=== PATIENT | female | born 1965 | race Caucasian/White ===

== ENCOUNTER 2023-05-10 08:40 | Inpatient (IN) | payer BC ==
[~2023-05-10] VITALS: Ht 157.5 cm; Wt 124.5 kg
[2023-05-10] MEDS ORDERED: diltiazem 5mg/ml 5ml inj. IV ONE (08:55)
[2023-05-10] MEDS ORDERED: normal saline 1000ml 1,000 ML IV ONE ×2 (08:55→11:15)
[2023-05-10] MEDS ORDERED: magnesium 2GM in 50ml NS 50 ML IV ONE (08:55)
[2023-05-10 09:10] LABS: BASOPHILS # (AUTO) 0.1 X10'3 (0-0.2); EOSINOPHILS # (AUTO) 0.1 X10'3 (0-0.9); LYMPHOCYTES # (AUTO) 2.4 X10'3 (1.1-4.8); RED BLOOD COUNT 5.35 X10'6 (4.20-5.60)
[2023-05-10 09:12] LABS: BASOPHILS % (AUTO) 1.1 % (0-1); EOSINOPHILS % (AUTO) 0.4 % (0-6); HEMATOCRIT 48.3 % (35.0-45.0); HEMOGLOBIN 16.1 g/dl (12.0-16.0); LYMPHOCYTES % (AUTO) 19.6 % (21-51); MEAN CORPUSCULAR HEMOGLOBIN 30.1 PG (27.0-31.0); MEAN CORPUSCULAR HGB CONC 33.3 g/dL (33.0-36.5); MEAN CORPUSCULAR VOLUME 90.3 FL (78-98); MEAN PLATELET VOLUME 10.6 FL (7.4-10.4); MONOCYTES # (AUTO) 1.3 X10'3 (0-0.9); MONOCYTES % (AUTO) 10.5 % (2-12); NEUTROPHILS # (AUTO) 8.3 X10'3 (1.8-7.7); NEUTROPHILS % (AUTO) 68.4 % (42-75); PLATELET COUNT 232 X10'3 (140-440); RED CELL DISTRIBUTION WIDTH 14.1 % (11.5-14.5); WHITE BLOOD COUNT 12.1 X10'3 (4.5-11.0)
[2023-05-10] MEDS ORDERED: diltiazem-NS 100mg/100ml 100 ML IV ONE (09:20)
[2023-05-10 10:19] LABS: ALBUMIN 3.9 G/DL (3.4-5.0); ANION GAP 20 (8-16); BLOOD UREA NITROGEN 26 MG/DL (7-18); BUN/CREATININE RATIO 17.6 (10.0-20.0); CALCIUM 9.3 MG/DL (8.5-10.1); CHLORIDE 102 MMOL/L (99-107); CREATININE 1.48 MG/DL (0.40-0.90); GLUCOSE 137 MG/DL (70-104); PRO BRAIN NATRIURETIC PEPTIDE 10519 PG/ML (0-125); SODIUM 137 MMOL/L (135-145); THYROID STIMULATING HORMONE 3.78 ulU/ml (0.34-4.50); eCRCL 39 ML/MIN; eGFR 36 ML/MIN
[2023-05-10 10:20] LABS: POTASSIUM 4.3 MMOL/L (3.5-5.1)
[2023-05-10 10:21] LABS: TOTAL CARBON DIOXIDE 14.7 MMOL/L (24-32)
[2023-05-10] MEDS ORDERED: normal saline 1000ML IV soln IVB ONE (10:35)
[2023-05-10] MEDS ORDERED: enoxaparin 100mg/ml syringe SUBCUT ONE ×2 (13:00→13:10)
[2023-05-10] MEDS ORDERED: MONT-40 PO (13:23)
[2023-05-10] MEDS ORDERED: ESCI-8 PO (13:23)
[2023-05-10] MEDS ORDERED: HYDROcodone/acetaminophen 10/325mg tab PO PRN (14:15)
[2023-05-10] MEDS ORDERED: magnesium 2GM in 50ml NS 50 ML IV PRN (14:15)
[2023-05-10] MEDS ORDERED: potassium Cl 40MEQ/1/2NS 520ml 520 ML IV PRN (14:15)
[2023-05-10] MEDS ORDERED: potassium Cl 20 mEq SR tablet PO PRN ×2 (14:15)
[2023-05-10] MEDS ORDERED: magnesium hydroxide 30ml (MOM) UD suspension PO PRN (14:15)
[2023-05-10] MEDS ORDERED: magnesium 4gm in 100ml NS 100 ML IV PRN (14:15)
[2023-05-10] MEDS ORDERED: HYDROcodone/acetaminophen 5mg/325mg tablet PO PRN (14:15)
[2023-05-10] MEDS ORDERED: mag hydrox/Alum hydrox/simeth 30ml oral suspension PO PRN (14:15)
[2023-05-10] MEDS ORDERED: ondansetron/PF 4mg/2ml inj IV PRN (14:15)
[2023-05-10] MEDS ORDERED: acetaminophen 325mg tablet PO PRN ×2 (14:15)
[2023-05-10] MEDS ORDERED: magnesium Cl slow-release 64mg tablet PO PRN (14:15)
[2023-05-10 14:42] LABS: BILIRUBIN,URINE NEGATIVE (Neg); CLARITY,URINE CLEAR (Clear); COLOR,URINE YELLOW (Yellow); GLUCOSE, URINE NEGATIVE (Neg); KETONES,URINE TRACE mg/dl (Neg); LEUKOCYTE ESTERASE ,URINE NEGATIVE (Neg); NITRITES, URINE NEGATIVE (Neg); OCCULT BLOOD,URINE NEGATIVE (Neg); PH,URINE 5.5 (4.8-8.0); PROTEIN,URINE NEGATIVE (Neg); UROBILINOGEN,URINE 0.2 E.U/dL (0.2-1.0)
[2023-05-10 14:51] LABS: UA COLLECTION TYPE NON-SPECIFIED
[2023-05-10 14:57] LABS: HEMOGLOBIN A1C 5.4 % (4.5-6.2)
[2023-05-10 15:41] VITALS: BP 134/90; PULSE 102; RESP 12; TEMP 98.1; O2SAT 97
[2023-05-10 16:41] VITALS: BP 114/55; PULSE 105; RESP 24
[2023-05-10] MEDS ORDERED: furosemide 20 MG/2 ML vial IV SCH (17:35)
[2023-05-10] MEDS ORDERED: metoprolol succinate 25mg (24-HOUR) SR. Tablet PO SCH (17:35)
[2023-05-10 17:41] VITALS: BP 97/67; PULSE 105; RESP 27
[2023-05-10 18:33] VITALS: BP 132/65; PULSE 111; RESP 21; TEMP 97.8; O2SAT 95
[2023-05-10] MEDS: flecainide 50mg tablet PO SCH (19:38)
[2023-05-10] MEDS: apixaban 5mg tablet PO SCH (19:38)
[2023-05-10 20:00] VITALS: RESP 19; O2SAT 95
[2023-05-10] MEDS: K and/or MAG REPLACEMENT MC SCH (20:00)
[2023-05-10 22:00] VITALS: BP 115/75; PULSE 56; RESP 18; TEMP 98.6; O2SAT 96
[2023-05-10 22:04] LABS: ABG BASE EXCESS -2.3 mmol/L (-2.0-2.0); ABG HCO3 19.7 mmol/L (22.0-26.0); ABG OXYGEN SATURATION 94.4 % (94-97); ABG PCO2 (T) 27.4 mmHg (32.0-45.0); ABG PH (T) 7.474 (7.350-7.450); ABG PO2 (T) 73.3 mmHg (75.0-100.0); ALLEN'S TEST Modified; FCOHb 0.6 % (0.0-3.9); FHHb 5.6 % (0.0-5.0); FMetHb 0.2 % (0.0-1.5); FO2Hb 93.6 % (94-97)
[2023-05-10 22:45] LABS: MAGNESIUM 1.6 MG/DL (1.5-2.4); POTASSIUM 3.2 MMOL/L (3.5-5.1)
[2023-05-11] VITALS (13 sets, daily range): BP systolic 98–117; BP diastolic 53–87; PULSE 114–158; RESP 15–24; TEMP 97.2–98.1; O2SAT 93–98
[2023-05-11] MEDS ORDERED: metoprolol tartrate 1mg/ml inj IV ONE (00:10)
[2023-05-11] MEDS ORDERED: diltiazem-NS 100mg/100ml 100 ML IV SCH ×5 (01:30→21:01)
[2023-05-11] MEDS ORDERED: diltiazem-NS 100mg/100ml 100 ML IV ONE (01:40)
[2023-05-11] MEDS: LORazepam 2 mg/ml vial IV PRN (01:46)
[2023-05-11 07:42] LABS: BASOPHILS # (AUTO) 0.1 X10'3 (0-0.2); HEMOGLOBIN 14.1 g/dl (12.0-16.0); LYMPHOCYTES # (AUTO) 1.9 X10'3 (1.1-4.8); MONOCYTES # (AUTO) 1.1 X10'3 (0-0.9); WHITE BLOOD COUNT 9.1 X10'3 (4.5-11.0)
[2023-05-11 07:45] LABS: EOSINOPHILS % (AUTO) 0.3 % (0-6); HEMATOCRIT 41.6 % (35.0-45.0); LYMPHOCYTES % (AUTO) 21.2 % (21-51); MEAN CORPUSCULAR HEMOGLOBIN 30.2 PG (27.0-31.0); MEAN CORPUSCULAR HGB CONC 33.9 g/dL (33.0-36.5); MEAN CORPUSCULAR VOLUME 89.2 FL (78-98); MEAN PLATELET VOLUME 10.8 FL (7.4-10.4); MONOCYTES % (AUTO) 11.5 % (2-12); PLATELET COUNT 211 X10'3 (140-440); RED BLOOD COUNT 4.67 X10'6 (4.20-5.60); RED CELL DISTRIBUTION WIDTH 13.7 % (11.5-14.5)
[2023-05-11 07:57] LABS: ALANINE AMINOTRANSFERASE 58 U/L (12-78); ALBUMIN 3.7 G/DL (3.4-5.0); ALBUMIN/GLOBULIN RATIO 1.2 (1.1-1.5); ALKALINE PHOSPHATASE 77 IU/L (46-116); ANION GAP 13 (8-16); ASPARTATE AMINO TRANSFERASE 47 U/L (10-37); BILIRUBIN,TOTAL 0.8 MG/DL (0.1-1.0); BLOOD UREA NITROGEN 20 MG/DL (7-18); BUN/CREATININE RATIO 17.7 (10.0-20.0); CALCIUM 8.4 MG/DL (8.5-10.1); CHLORIDE 104 MMOL/L (99-107); CREATININE 1.13 MG/DL (0.40-0.90); GLUCOSE 119 MG/DL (70-104); SODIUM 136 MMOL/L (135-145); TOTAL CARBON DIOXIDE 19.3 MMOL/L (24-32); TOTAL PROTEIN 6.8 G/DL (6.4-8.2); eCRCL 43 ML/MIN; eGFR 50 ML/MIN
[2023-05-11] MEDS: K and/or MAG REPLACEMENT MC SCH ×2 (08:00→20:00)
[2023-05-11 08:02] LABS: CHOLESTEROL 141 MG/DL (0-200); HDL CHOLESTEROL 28 MG/DL (35-60); LDL CHOLESTEROL 88 MG/DL (50-100); PHOSPHORUS 4.4 MG/DL (2.3-4.5); TRIGLYCERIDES 122 MG/DL (20-135)
[2023-05-11 08:31] LABS: LARGE PLATELETS FEW; PLATELET ESTIMATE NORMAL
[2023-05-11 08:33] LABS: HYPOGRANULAR PLATELETS FEW
[2023-05-11] MEDS: ESCITALOPRAM 10 mg tablet 10 MG TABLET PO SCH (08:42)
[2023-05-11] MEDS: flecainide 50mg tablet PO SCH (08:42)
[2023-05-11] MEDS: furosemide 20 MG/2 ML vial IV SCH (08:42)
[2023-05-11] MEDS: apixaban 5mg tablet PO SCH (08:42)
[2023-05-11] MEDS ORDERED: metoprolol tartrate 12.5mg (1/2 tablet) PO SCH (08:46)
[2023-05-11] MEDS ORDERED: ondansetron 4mg rapidly disintigrating tab PO PRN (14:05)
[2023-05-11] MEDS ORDERED: esmolol/sodium cl bag 250 ML IV SCH ×2 (17:05→23:50)
[2023-05-11] MEDS ORDERED: enoxaparin 40mg/0.4ml syringe SQ SCH (20:00)
[2023-05-11] MEDS: enoxaparin 30mg/0.3ml syringe SUBCUT SCH (20:47)
[2023-05-11] MEDS ORDERED: metoprolol tartrate 25mg tablet PO SCH (21:00)
[2023-05-12] VITALS (23 sets, daily range): BP systolic 75–145; BP diastolic 49–91; PULSE 82–159; RESP 12–20; TEMP 97.4–98.3; O2SAT 94–100
[2023-05-12] MEDS ORDERED: diltiazem-NS 100mg/100ml 100 ML IV SCH (06:00)
[2023-05-12] MEDS: amiodarone 150mg/dext, iso-os 100 ML IV ONE ×2 (06:28→09:24)
[2023-05-12 07:18] LABS: BASOPHILS # (AUTO) 0.1 X10'3 (0-0.2); EOSINOPHILS # (AUTO) 0.1 X10'3 (0-0.9); HEMATOCRIT 42.2 % (35.0-45.0); HEMOGLOBIN 14.1 g/dl (12.0-16.0); MEAN CORPUSCULAR HGB CONC 33.4 g/dL (33.0-36.5); WHITE BLOOD COUNT 10.7 X10'3 (4.5-11.0)
[2023-05-12 07:22] LABS: EOSINOPHILS % (AUTO) 0.7 % (0-6); LYMPHOCYTES # (AUTO) 2.6 X10'3 (1.1-4.8); LYMPHOCYTES % (AUTO) 24.6 % (21-51); MEAN CORPUSCULAR HEMOGLOBIN 30.1 PG (27.0-31.0); MEAN CORPUSCULAR VOLUME 90.1 FL (78-98); MEAN PLATELET VOLUME 10.9 FL (7.4-10.4); MONOCYTES # (AUTO) 1.5 X10'3 (0-0.9); MONOCYTES % (AUTO) 14.3 % (2-12); NEUTROPHILS # (AUTO) 6.4 X10'3 (1.8-7.7); NEUTROPHILS % (AUTO) 59.4 % (42-75); PLATELET COUNT 210 X10'3 (140-440); RED BLOOD COUNT 4.69 X10'6 (4.20-5.60); RED CELL DISTRIBUTION WIDTH 13.8 % (11.5-14.5)
[2023-05-12 07:39] LABS: ALANINE AMINOTRANSFERASE 211 U/L (12-78); ALBUMIN 3.7 G/DL (3.4-5.0); ALKALINE PHOSPHATASE 84 IU/L (46-116); ANION GAP 15 (8-16); ASPARTATE AMINO TRANSFERASE 208 U/L (10-37); BILIRUBIN,TOTAL 1.1 MG/DL (0.1-1.0); BLOOD UREA NITROGEN 30 MG/DL (7-18); BUN/CREATININE RATIO 25.9 (10.0-20.0); CALCIUM 8.6 MG/DL (8.5-10.1); CHLORIDE 101 MMOL/L (99-107); CREATININE 1.16 MG/DL (0.40-0.90); GLUCOSE 124 MG/DL (70-104); MAGNESIUM 1.9 MG/DL (1.5-2.4); PHOSPHORUS 4.2 MG/DL (2.3-4.5); POTASSIUM 3.6 MMOL/L (3.5-5.1); SODIUM 136 MMOL/L (135-145); TOTAL CARBON DIOXIDE 20.2 MMOL/L (24-32); TOTAL PROTEIN 7.3 G/DL (6.4-8.2); eCRCL 42 ML/MIN; eGFR 48 ML/MIN
[2023-05-12] MEDS: K and/or MAG REPLACEMENT MC SCH ×2 (08:00→20:00)
[2023-05-12] MEDS: furosemide 20 MG/2 ML vial IV SCH (08:13)
[2023-05-12] MEDS: ESCITALOPRAM 10 mg tablet 10 MG TABLET PO SCH (08:13)
[2023-05-12] MEDS: metoprolol tartrate 50mg tablet PO SCH ×2 (08:17→21:52)
[2023-05-12] MEDS: enoxaparin 30mg/0.3ml syringe SUBCUT SCH (08:20)
[2023-05-12] MEDS: amiodarone/D5 360MG/200ML BAG 200 ML IV SCH ×3 (09:45→20:33)
[2023-05-12] MEDS: LORazepam 2 mg/ml vial IV PRN (09:52)
[2023-05-12] MEDS ORDERED: normal saline 1000ml 1,000 ML IV ONE (10:40)
[2023-05-12] MEDS ORDERED: fentaNYL/PF 50MCG/1 ML 2ML syringe IV ONE (15:15)
[2023-05-12] MEDS ORDERED: MIDAZolam 1mg/ml 10ml vial IV ONE (15:15)
[2023-05-12] MEDS ORDERED: enoxaparin 100mg/ml syringe SUBCUT ONE (17:10)
[2023-05-12] MEDS ORDERED: digoxin 250mcg/ml 2ml ampule IV ONE (18:00)
[2023-05-12] MEDS ORDERED: iohexol 350MG/ML 100ml bottle IV ONE (20:46)
[2023-05-13] VITALS (16 sets, daily range): BP systolic 101–124; BP diastolic 60–92; PULSE 76–104; RESP 16–24; TEMP 96.8–98.1; O2SAT 95–98
[2023-05-13] MEDS: amiodarone/D5 360MG/200ML BAG 200 ML IV SCH ×4 (06:00→20:34)
[2023-05-13 07:01] LABS: BASOPHILS # (AUTO) 0.1 X10'3 (0-0.2); BASOPHILS % (AUTO) 0.6 % (0-1); EOSINOPHILS % (AUTO) 0.2 % (0-6); HEMATOCRIT 40.7 % (35.0-45.0); HEMOGLOBIN 13.9 g/dl (12.0-16.0); LYMPHOCYTES # (AUTO) 2.3 X10'3 (1.1-4.8); MEAN CORPUSCULAR HEMOGLOBIN 30.4 PG (27.0-31.0); MEAN CORPUSCULAR HGB CONC 34.1 g/dL (33.0-36.5); MEAN PLATELET VOLUME 10.5 FL (7.4-10.4); MONOCYTES # (AUTO) 1.4 X10'3 (0-0.9); MONOCYTES % (AUTO) 13.1 % (2-12); NEUTROPHILS # (AUTO) 7.1 X10'3 (1.8-7.7); NEUTROPHILS % (AUTO) 65.1 % (42-75); PLATELET COUNT 186 X10'3 (140-440); RED BLOOD COUNT 4.57 X10'6 (4.20-5.60); RED CELL DISTRIBUTION WIDTH 13.9 % (11.5-14.5)
[2023-05-13 07:24] LABS: ANION GAP 13 (8-16); BLOOD UREA NITROGEN 27 MG/DL (7-18); BUN/CREATININE RATIO 24.1 (10.0-20.0); CALCIUM 8.2 MG/DL (8.5-10.1); CHLORIDE 105 MMOL/L (99-107); CREATININE 1.12 MG/DL (0.40-0.90); GLUCOSE 96 MG/DL (70-104); MAGNESIUM 1.8 MG/DL (1.5-2.4); PHOSPHORUS 3.5 MG/DL (2.3-4.5); POTASSIUM 3.8 MMOL/L (3.5-5.1); SODIUM 138 MMOL/L (135-145); TOTAL CARBON DIOXIDE 19.9 MMOL/L (24-32); TOTAL PROTEIN 6.6 G/DL (6.4-8.2); eCRCL 44 ML/MIN; eGFR 50 ML/MIN
[2023-05-13 07:25] LABS: ALANINE AMINOTRANSFERASE 609 U/L (12-78); ALBUMIN 3.4 G/DL (3.4-5.0); ALBUMIN/GLOBULIN RATIO 1.1 (1.1-1.5); ALKALINE PHOSPHATASE 84 IU/L (46-116); ASPARTATE AMINO TRANSFERASE 732 U/L (10-37)
[2023-05-13] MEDS: K and/or MAG REPLACEMENT MC SCH ×2 (08:00→20:00)
[2023-05-13] MEDS: metoprolol tartrate 50mg tablet PO SCH ×2 (09:32→19:18)
[2023-05-13] MEDS: furosemide 20 MG/2 ML vial IV SCH (09:33)
[2023-05-13] MEDS: ESCITALOPRAM 10 mg tablet 10 MG TABLET PO SCH (09:33)
[2023-05-13] MEDS ORDERED: enoxaparin 40mg/0.4ml syringe SUBCUT SCH (20:00)
[2023-05-14] VITALS: BP 102/68; PULSE 84; RESP 18; O2SAT 96
[2023-05-14] MEDS: amiodarone/D5 360MG/200ML BAG 200 ML IV SCH
[2023-05-14 01:30] VITALS: BP 104/58; PULSE 86; RESP 18; TEMP 98.1; O2SAT 96
== END 2023-05-14 02:00 | disposition critical access hospital (66) | DRG 308 ==
LOC: ER 08:40 → ED HOLD 12:44 → PCU 3S 14:45
PROVIDERS: ADMIT Family Medicine; ATTEND Family Medicine
PROC: 5A2204Z Restoration of Cardiac Rhythm, Single (ICD-10-PCS; principal; 2023-05-12)
PROC: B24BZZ4 Ultrasonography of Heart with Aorta, Transesophageal (ICD-10-PCS; 2023-05-12)
PROC: B32T1ZZ Computerized Tomography (CT Scan) of Left Pulmonary Artery using Low Osmolar Contrast (ICD-10-PCS; 2023-05-12)
PROC: B3201ZZ Computerized Tomography (CT Scan) of Thoracic Aorta using Low Osmolar Contrast (ICD-10-PCS; 2023-05-12)
PROC: B32S1ZZ Computerized Tomography (CT Scan) of Right Pulmonary Artery using Low Osmolar Contrast (ICD-10-PCS; 2023-05-12)
DX: I48.91 Unspecified atrial fibrillation (principal); N17.0 Acute kidney failure with tubular necrosis; E87.20 Acidosis, unspecified; I50.20 Unspecified systolic (congestive) heart failure; F43.9 Reaction to severe stress, unspecified; I05.2 Rheumatic mitral stenosis with insufficiency; R74.01 Elevation of levels of liver transaminase levels; Z20.822 Contact with and (suspected) exposure to COVID-19; I95.9 Hypotension, unspecified; D72.829 Elevated white blood cell count, unspecified; E86.0 Dehydration; T46.2X5A Adverse effect of other antidysrhythmic drugs, initial encounter; Y92.238 Other place in hospital as the place of occurrence of the external cause; Z79.899 Other long term (current) drug therapy; Z87.891 Personal history of nicotine dependence
CPT/HCPCS: 36415; 36600; 71045; 71275; 74018; 80048; 80053; 80061; 81003; 82803; 83036; 83605; 83735; 83880; 84100; 84132; 84145; 84443; 84484; 85008; 85018; 85025; 87081; 87811; 93005; 93306; 93312; 94760; 94799; 99285; A4615; A6213; G0378; J0282; J1160; J1650; J1940; J2060; J2250; J2405; J3475; J3480; J3490; J7030; J7040; Q9967

== ENCOUNTER 2023-07-04 09:59 | Outpatient (CLI) | payer BC ==
[~2023-07-04 09:59] MED LIST: ESCI-8 PO
[2023-07-04 10:33] LABS: BASOPHILS # (AUTO) 0.1 X10'3 (0-0.2); BASOPHILS % (AUTO) 0.9 % (0-1); EOSINOPHILS # (AUTO) 0.1 X10'3 (0-0.9); EOSINOPHILS % (AUTO) 1.8 % (0-6); HEMATOCRIT 38.3 % (35.0-45.0); HEMOGLOBIN 12.9 g/dl (12.0-16.0); LYMPHOCYTES % (AUTO) 13.2 % (21-51); MEAN CORPUSCULAR HEMOGLOBIN 28.8 PG (27.0-31.0); MEAN CORPUSCULAR HGB CONC 33.7 g/dL (33.0-36.5); MEAN CORPUSCULAR VOLUME 85.3 FL (78-98); MEAN PLATELET VOLUME 8.8 FL (7.4-10.4); MONOCYTES # (AUTO) 0.8 X10'3 (0-0.9); MONOCYTES % (AUTO) 10.2 % (2-12); NEUTROPHILS # (AUTO) 5.8 X10'3 (1.8-7.7); NEUTROPHILS % (AUTO) 73.9 % (42-75); PLATELET COUNT 283 X10'3 (140-440); RED BLOOD COUNT 4.49 X10'6 (4.20-5.60); RED CELL DISTRIBUTION WIDTH 14.6 % (11.5-14.5); WHITE BLOOD COUNT 7.9 X10'3 (4.5-11.0)
[2023-07-04 10:43] LABS: INR 2.1 INR
[2023-07-04 10:52] LABS: PROTHROMBIN TIME 21.5 SECONDS (9.0-12.0)
== END 2023-07-04 23:59 | disposition home or self-care (01) ==
LOC: LAB 09:59
PROVIDERS: ATTEND Internal Medicine Interventional Cardiology
DX: Z95.2 Presence of prosthetic heart valve (principal)
CPT/HCPCS: 36415; 85025; 85610

== ENCOUNTER 2023-08-18 16:04 | Outpatient (CLI) | payer BC ==
[2023-08-18 16:48] LABS: INR 2.8 INR; PROTHROMBIN TIME 27.6 SECONDS (9.0-12.0)
== END 2023-08-18 23:59 | disposition home or self-care (01) ==
LOC: LAB 16:04
PROVIDERS: ATTEND Family Medicine
DX: I82.409 Acute embolism and thrombosis of unspecified deep veins of unspecified lower extremity (principal)
CPT/HCPCS: 36415; 85610

== ENCOUNTER 2023-08-29 09:52 | Outpatient (CLI) | payer BC ==
[2023-08-29 10:35] LABS: ALBUMIN 3.8 G/DL (3.4-5.0); ANION GAP 5 (8-16); BLOOD UREA NITROGEN 22 MG/DL (7-18); BUN/CREATININE RATIO 23.7 (10.0-20.0); CALCIUM 8.9 MG/DL (8.5-10.1); CHLORIDE 102 MMOL/L (99-107); CREATININE 0.93 MG/DL (0.40-0.90); GLUCOSE 97 MG/DL (70-104); POTASSIUM 4.3 MMOL/L (3.5-5.1); SODIUM 135 MMOL/L (135-145); TOTAL CARBON DIOXIDE 28.3 MMOL/L (24-32); eGFR 62 ML/MIN
== END 2023-08-29 23:59 | disposition home or self-care (01) ==
LOC: LAB 09:52
PROVIDERS: ATTEND Family Medicine
DX: S80.01XA Contusion of right knee, initial encounter (principal); I50.22 Chronic systolic (congestive) heart failure; I48.91 Unspecified atrial fibrillation; X58.XXXA Exposure to other specified factors, initial encounter; Y93.89 Activity, other specified; Y92.89 Other specified places as the place of occurrence of the external cause; Y99.8 Other external cause status
CPT/HCPCS: 36415; 73564; 80048

== ENCOUNTER 2023-09-06 07:22 | Outpatient (CLI) | payer BC ==
[2023-09-06 07:55] LABS: INR 3.4 INR; PROTHROMBIN TIME 32.4 SECONDS (9.0-12.0)
== END 2023-09-06 23:59 | disposition home or self-care (01) ==
LOC: RAD 07:22
PROVIDERS: ATTEND Family Medicine
DX: I82.409 Acute embolism and thrombosis of unspecified deep veins of unspecified lower extremity (principal)
CPT/HCPCS: 36415; 85610

== ENCOUNTER 2023-10-21 14:15 | Emergency (ER) | payer BC ==
[~2023-10-21] VITALS: Ht 167.6 cm; Wt 109.1 kg
[2023-10-21 14:19] VITALS: TEMP 98
[2023-10-21] MEDS: normal saline 500ml IV soln 500 ML IV SCH (15:05)
[2023-10-21 15:06] LABS: BASOPHILS # (AUTO) 0.1 X10'3 (0-0.2); BASOPHILS % (AUTO) 1.2 % (0-1); EOSINOPHILS # (AUTO) 0.1 X10'3 (0-0.9); EOSINOPHILS % (AUTO) 1.1 % (0-6); HEMATOCRIT 40.5 % (35.0-45.0); HEMOGLOBIN 13.4 g/dl (12.0-16.0); LYMPHOCYTES # (AUTO) 1.6 X10'3 (1.1-4.8); LYMPHOCYTES % (AUTO) 19.9 % (21-51); MEAN CORPUSCULAR HEMOGLOBIN 28.6 PG (27.0-31.0); MEAN CORPUSCULAR HGB CONC 33.1 g/dL (33.0-36.5); MEAN CORPUSCULAR VOLUME 86.4 FL (78-98); MONOCYTES # (AUTO) 0.9 X10'3 (0-0.9); MONOCYTES % (AUTO) 11.3 % (2-12); NEUTROPHILS # (AUTO) 5.3 X10'3 (1.8-7.7); NEUTROPHILS % (AUTO) 66.5 % (42-75); PLATELET COUNT 237 X10'3 (140-440); RED CELL DISTRIBUTION WIDTH 14.8 % (11.5-14.5)
[2023-10-21 15:25] LABS: ALBUMIN 4.1 G/DL (3.4-5.0); ANION GAP 6 (8-16); BLOOD UREA NITROGEN 20 MG/DL (7-18); BUN/CREATININE RATIO 18.7 (10.0-20.0); CALCIUM 8.7 MG/DL (8.5-10.1); CHLORIDE 101 MMOL/L (99-107); CREATININE 1.07 MG/DL (0.40-0.90); GLUCOSE 98 MG/DL (70-104); POTASSIUM 3.8 MMOL/L (3.5-5.1); PRO BRAIN NATRIURETIC PEPTIDE 429 PG/ML (0-125); SODIUM 138 MMOL/L (135-145); eCRCL 54 ML/MIN; eGFR 53 ML/MIN
[2023-10-21 17:39] VITALS: BP 113/66; PULSE 60; RESP 15; O2SAT 99
== END 2023-10-21 17:42 | disposition home or self-care (01) ==
LOC: ER 14:16
DX: R42 Dizziness and giddiness (principal); E86.0 Dehydration; Z79.899 Other long term (current) drug therapy; Z98.890 Other specified postprocedural states
CPT/HCPCS: 36415; 71045; 80048; 83880; 84484; 85025; 93005; 96360; 96361; 99285; J7030; J7040

== ENCOUNTER 2023-11-29 09:10 | Outpatient (CLI) | payer BC ==
[2023-11-29] MEDS ORDERED: iohexol 300mg/ml 100ml inj. ONE (09:24)
== END 2023-11-29 23:59 | disposition home or self-care (01) ==
LOC: RAD 09:10
PROVIDERS: ATTEND Nurse Practitioner Family
DX: R91.1 Solitary pulmonary nodule (principal); I51.7 Cardiomegaly; K44.9 Diaphragmatic hernia without obstruction or gangrene
CPT/HCPCS: 71260; Q9967

== ENCOUNTER 2023-12-13 07:21 | Outpatient (CLI) | payer BC | END 2023-12-13 23:59 | disposition home or self-care (01) | LOC: RAD 07:21 | PROVIDERS: ATTEND Family Medicine | DX: M25.532 Pain in left wrist (principal) | CPT/HCPCS: 73110 ==

== ENCOUNTER 2024-04-10 14:24 | Emergency (ER) | payer BC ==
[~2024-04-10] VITALS: Ht 167.6 cm; Wt 101.3 kg
[2024-04-10 14:54] VITALS: TEMP 97.2
[2024-04-10 15:34] LABS: BASOPHILS % (AUTO) 0.3 % (0-1); EOSINOPHILS # (AUTO) 0.1 X10'3 (0-0.9); EOSINOPHILS % (AUTO) 1.6 % (0-6); HEMATOCRIT 42.4 % (35.0-45.0); HEMOGLOBIN 14.3 g/dl (12.0-16.0); LYMPHOCYTES # (AUTO) 1.6 X10'3 (1.1-4.8); LYMPHOCYTES % (AUTO) 24.4 % (21-51); MEAN CORPUSCULAR HEMOGLOBIN 30.1 PG (27.0-31.0); MEAN CORPUSCULAR HGB CONC 33.7 g/dL (33.0-36.5); MEAN CORPUSCULAR VOLUME 89.4 FL (78-98); MEAN PLATELET VOLUME 10.6 FL (7.4-10.4); MONOCYTES # (AUTO) 0.9 X10'3 (0-0.9); MONOCYTES % (AUTO) 13.4 % (2-12); NEUTROPHILS # (AUTO) 3.8 X10'3 (1.8-7.7); NEUTROPHILS % (AUTO) 60.3 % (42-75); PLATELET COUNT 183 X10'3 (140-440); RED BLOOD COUNT 4.74 X10'6 (4.20-5.60); WHITE BLOOD COUNT 6.3 X10'3 (4.5-11.0)
[2024-04-10 16:03] LABS: ALANINE AMINOTRANSFERASE 25 U/L (12-78); ALBUMIN/GLOBULIN RATIO 1.2 (1.1-1.5); ALKALINE PHOSPHATASE 118 IU/L (46-116); ANION GAP 10 (8-16); ASPARTATE AMINO TRANSFERASE 20 U/L (10-37); BILIRUBIN,TOTAL 0.5 MG/DL (0.1-1.0); BLOOD UREA NITROGEN 17 MG/DL (7-18); BUN/CREATININE RATIO 20.2 (10.0-20.0); CALCIUM 8.8 MG/DL (8.5-10.1); CHLORIDE 102 MMOL/L (99-107); CREATININE 0.84 MG/DL (0.40-0.90); GLUCOSE 90 MG/DL (70-104); SODIUM 138 MMOL/L (135-145); TOTAL CARBON DIOXIDE 26.4 MMOL/L (24-32); TOTAL PROTEIN 7.3 G/DL (6.4-8.2); eCRCL 68 ML/MIN; eGFR 70 ML/MIN
[2024-04-10 16:05] LABS: PRO BRAIN NATRIURETIC PEPTIDE 415 PG/ML (0-125)
[2024-04-10 16:11] LABS: POTASSIUM 4.3 MMOL/L (3.5-5.1)
[2024-04-10 16:57] LABS: PLATELET ESTIMATE NORMAL
[2024-04-10 16:58] LABS: LARGE PLATELETS FEW
[2024-04-10 18:24] VITALS: BP 142/85; PULSE 72; RESP 16; O2SAT 99
== END 2024-04-10 18:26 | disposition home or self-care (01) ==
LOC: ER 14:25
DX: T82.118A Breakdown (mechanical) of other cardiac electronic device, initial encounter (principal); Y82.8 Other medical devices associated with adverse incidents; Z95.0 Presence of cardiac pacemaker
CPT/HCPCS: 36415; 71045; 80053; 83880; 84484; 85008; 85025; 93005; 99285

== ENCOUNTER 2024-05-07 15:50 | Outpatient (CLI) | payer BC | END 2024-05-07 23:59 | disposition home or self-care (01) | LOC: CARD DIAG 15:50 | PROVIDERS: ATTEND Family Medicine | DX: I08.2 Rheumatic disorders of both aortic and tricuspid valves (principal); I50.22 Chronic systolic (congestive) heart failure | CPT/HCPCS: 93306 ==

== ENCOUNTER 2025-01-21 07:38 | Outpatient (CLI) | payer BC ==
[2025-01-21 08:24] LABS: MEAN PLATELET VOLUME 9.8 FL (7.4-10.4); RED CELL DISTRIBUTION WIDTH 13.8 % (11.5-14.5)
[2025-01-21 08:41] LABS: CREATININE 0.79 MG/DL (0.40-0.90); PRO BRAIN NATRIURETIC PEPTIDE 548 PG/ML (0-125); TOTAL CARBON DIOXIDE 30.5 MMOL/L (24-32); eGFR 74 ML/MIN
[2025-01-21] MEDS ORDERED: POTA20PA40 PO (12:11)
== END 2025-01-21 23:59 | disposition home or self-care (01) ==
LOC: LAB 07:38
PROVIDERS: ATTEND Nurse Practitioner Family
DX: Z00.01 Encounter for general adult medical examination with abnormal findings (principal); I48.0 Paroxysmal atrial fibrillation; R79.89 Other specified abnormal findings of blood chemistry; R73.03 Prediabetes; Z95.810 Presence of automatic (implantable) cardiac defibrillator; I42.8 Other cardiomyopathies
CPT/HCPCS: 36415; 80053; 82977; 83036; 83690; 83880; 84439; 84443; 85025

== ENCOUNTER 2025-01-21 09:45 | Emergency (ER) | payer BC ==
[~2025-01-21] VITALS: Ht 167.6 cm; Wt 88.8 kg
[2025-01-21 09:52] VITALS: TEMP 97
[2025-01-21 10:30] LABS: MEAN PLATELET VOLUME 9.8 FL (7.4-10.4); RED CELL DISTRIBUTION WIDTH 13.9 % (11.5-14.5)
[2025-01-21 10:44] LABS: CREATININE 0.73 MG/DL (0.40-0.90); TOTAL CARBON DIOXIDE 32.9 MMOL/L (24-32); eCRCL 78 ML/MIN; eGFR 82 ML/MIN
--- NOTE | 2025-01-21 10:58 | Physician Documentation ---
History of Present Illness ~ General Chief Complaint: Abnormal Lab(s) Stated Complaint: DR PUENTES FOR CRITICAL LABS Time Seen by MD: 09:57 Primary Medical Doctor: NONE Mode of Arrival: POV, Ambulatory Exam Limitations: no limitations History of Present Illness Initial Comments Chief Complaint: Abnormal lab Caveat: None Independent Historians: None History of Present Illness: Patient is a 59-year-old woman with a history of mechanical mitral valve. Patient is on Bumex and Coumadin. Patient had lab work done yesterday and had a potassium of 2.5. She was referred here for evaluation. Patient denies any symptoms of acute illness. She isn't having any fatigue, shortness breath or chest pain. Patient states that she has not been able to get her INR over 2.5. Review of systems: All systems were reviewed and are negative except for what is indicated in the history of present illness. Past Medical History: Congestive heart failure Past Surgical History: Mechanical mitral valve Social History: No tobacco use, no alcohol use, no drug use Medications: Reviewed as documented Nursing Notes Allergies: Reviewed as documented in Nursing Notes Psych: normal affect, good eye contact, no apparent hallucination, normal speech Medication Reconciliation Allergies: Coded Allergies: No Known Allergies (Unverified , 01/21/25) Scheduled Escitalopram Oxalate (Escitalopram Oxalate), 1 TAB PO DAILY, (Reported) Potassium Chloride (Klor-Con), 1 PKT PO BID Past Medical History Past Medical History: *CARDIOVASCULAR*, Mitral Valve Stenosis Past Surgical History: noncontributory, other Drug Use: none Lives In: Home Review of Systems All Other Systems at this time: Reviewed and Negative ROS Patient denies any other acute symptoms other than above. All other systems are negative Physical Exam Physical Exam Vital Signs: RN Vital Signs have been reviewed: Yes, Temperature: 97.0, Source: Temporal, Heart Rate: 57, Respiratory Rate: 16, BP: 115/40, Pulse Oximetry: 98, Weight: 88.750 Pulse Oximetry Reflects: adequate oxygenation Physical Exam General Appearance: No distress HEENT: Normal OP, moist oral mucosa, PERRL, EOMI Neck: supple, normal ROM, trachea midline Pulmonary: No respiratory distress, CTA, BS equal Cardiac: RRR, no murmur, rub or gallop, GI: nondistended, soft, nontender, normal bowel sounds, no guarding, no rebound Extremities: normal ROM, no swelling, non-tender Skin: intact, dry, warm, no rashes Neuro: AAOx3, speech is clear, no focal motor weakness Psych: normal affect, good eye contact, no apparent hallucination, normal speech Progress Results/Orders Results/Orders Completed Orders - DARA BARNETT MD Cbc/Diff (01/21/25 10:07) MG (01/21/25 10:07) CMP (01/21/25 10:07) Pt Inr (01/21/25 10:59) Potassium Cl Sr Tablet (K-Dur Tablet) (01/21/25 12:20) Vital Signs 01/21/25 01/21/25 01/21/25 01/21/25 09:52 10:20 11:07 12:34 Temp 97.0 Pulse 57 58 62 Resp 18 16 12 12 B/P (MAP) 115/40 110/60 (77) 113/59 Pulse Ox 98 97 97 O2 Flow Rate 0 Laboratory Tests Test 01/21/25 10:20 White Blood Count 11.1 H Red Blood Count 4.61 Hemoglobin 13.9 Hematocrit 40.8 Mean Corpuscular Volume 88.5 Mean Corpuscular Hemoglobin 30.1 Mean Corpuscular Hemoglobin Concent 34.0 Red Cell Distribution Width 13.9 Platelet Count 231 Mean Platelet Volume 9.8 Neutrophils (%) (Auto) 78.6 H Lymphocytes (%) (Auto) 10.9 L Monocytes (%) (Auto) 8.7 Eosinophils (%) (Auto) 0.8 Basophils (%) (Auto) 1.0 Neutrophils # (Auto) 8.7 H Lymphocytes # (Auto) 1.2 Monocytes # (Auto) 1.0 H Eosinophils # (Auto) 0.1 Basophils # (Auto) 0.1 CBC Comment Prothrombin Time 17.2 H INR International Normalized Ratio 1.8 Coagulation Comments Sodium Level 140 Potassium Level 3.0 *L Chloride Level 102 Carbon Dioxide Level 32.9 H Anion Gap 5 L Blood Urea Nitrogen 20 H Creatinine 0.73 Estimated GFR/1.73 m2 82 BUN/Creatinine Ratio 27.4 H Glucose Level 97 Calcium Level 8.8 Magnesium Level 2.0 Total Bilirubin 0.6 Aspartate Amino Transf (AST/SGOT) 18 Alanine Aminotransferase (ALT/SGPT) 22 Alkaline Phosphatase 116 Total Protein 7.5 Albumin 3.9 Globulin 3.6 Albumin/Globulin Ratio 1.1 Chemistry Comments Medical Decision Making Additional info obtained from: old records Findings Differential diagnosis includes but is not limited to: Hypomagnesemia, hypokalemia, acute kidney injury, medication side effect Laboratory data independent interpretation: CBC: Unremarkable, WBC 11.1 CMP: Hypokalemia, potassium three, magnesium normal at two. Otherwise unremarkable PT/INR: 17.2/1.8 Emergency department course/medical decision-making: Patient is likely hypokalemic secondary to for Bumex. Patient isn't on potassium supplements. Patient is given potassium 40 mEq here orally. She will be placed on potassium 20 mEq b.i.d.. Patient's INR is subtherapeutic. She is going to be instructed to double her dose today and then try double the dose every other day. Patient has lab work tomorrow for repeat INR. Patient is stable for discharge. Differential Diagnosis See above Departure Disposition: HOME / SELF CARE / HOMELESS Impression: Primary Impression: Hypokalemia Condition: Stable Discharge Instructions: Hypokalemia Referrals: NO PRIMARY CARE PROVIDER (PCP) Prescriptions Potassium Chloride (Klor-Con) 20 Meq Packet 1 PKT PO BID for 30 Days, #30 PKT 0 Refills Prov: DARA BARNETT MD 01/21/25 Education Educated: Patient Educated regarding: diagnosis, treatment Signature Scribe Signature: No scribe Attestation: No scribe DARA BARNETT MD Jan 21, 2025 10:58
[2025-01-21 11:27] LABS: INR 1.8 INR
[2025-01-21] MEDS ORDERED: POTA20PA40 PO (12:11)
[2025-01-21] MEDS: potassium Cl 20 mEq SR tablet PO ONE (12:30)
[2025-01-21 12:34] VITALS: BP 113/59; PULSE 62; RESP 12; O2SAT 97
== END 2025-01-21 12:36 | disposition home or self-care (01) ==
LOC: ER 09:46
DX: E87.6 Hypokalemia (principal); I50.9 Heart failure, unspecified
CPT/HCPCS: 36415; 80053; 83735; 85025; 85610; 99284

== ENCOUNTER 2025-02-13 13:07 | Emergency (ER) | payer BC ==
[~2025-02-13] VITALS: Ht 167.6 cm; Wt 90.4 kg
[~2025-02-13 13:07] MED LIST changes: +POTA20PA40 PO
--- NOTE | 2025-02-13 13:14 | ELECTROCARDIOGRAPH REPORT ---
[facility] Test Date: 2025-02-13 Test Time: 13:12:57 Pat Name: SOMMER SAUCEDA Department: EMERGENCY ROOM Patient ID: [facility]-[id number] Room: Gender: F Patient Support Representative: : 1965 Requested By: LOTTIE CARTAGENA Order Number: [id number] Reading MD: Dr. Perry Serna Measurements Intervals [place] Rate: 69 P: 0 [place]: 231 QRS: 121 QRSD: 140 T: 43 QT: 440 QTc: 472 Interpretive Statements A-V dual-paced complexes w/ some inhibition No further analysis attempted due to paced rhythm Electronically Signed On 02-14-2025 18:48:[address] Perry Serna Please click the below link to view image of tracing.
[2025-02-13 13:41] LABS: MEAN PLATELET VOLUME 10.5 FL (7.4-10.4); RED CELL DISTRIBUTION WIDTH 14.0 % (11.5-14.5)
[2025-02-13 13:58] LABS: CREATININE 1.04 MG/DL (0.40-0.90); PRO BRAIN NATRIURETIC PEPTIDE 470 PG/ML (0-125); TOTAL CARBON DIOXIDE 27.5 MMOL/L (24-32); eCRCL 55 ML/MIN; eGFR 54 ML/MIN
--- NOTE | 2025-02-13 14:05 | RADIOLOGY REPORT ---
CHEST RADIOGRAPH Indication: CP Technique: Single frontal view of the chest was obtained Comparison: DI CHEST,SINGLE VIEW on DOS: 04/10/24, CT CT CHEST on DOS: 11/29/23, DI CHEST,SINGLE VIEW on DOS: 10/21/23, CT CTA CHEST PE on DOS: 05/12/23, DI CHEST,SINGLE VIEW on DOS: 05/10/23 FINDINGS: Lines and Tubes: Left sided pacemaker Lungs: No focal consolidation. Pleura: No effusion. No pneumothorax. Cardiomediastinal contours: Unremarkable Bones: No acute osseous abnormality. IMPRESSION: No acute cardiopulmonary disease.
--- NOTE | 2025-02-13 15:20 | Physician Documentation ---
History of Present Illness ~ Chief Complaint: Palpitations Stated Complaint: AFIB Time Seen by MD: 14:18 Primary Medical Doctor: NONE Mode of Arrival: POV HPI This is a very pleasant 59-year-old female with a known history of atrial fibrillation, status post pacemaker, status post valve repairs, followed by Dr. Katy peralta, on anticoagulation, presents for evaluation of palpitations. Evidently her insurance had denied Mounjaro two months ago, since then she has been gaining weight and experiencing intermittent palpitations. 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 He had become concerned and sent the patient in the emergency department. The patient states that typically her palpitations are notable for one strong beat followed by a triple beat flutter that comes in the rapid succession. At no point in time she has a knee chest pain or shortness a breath. Denies any fever, chills, nausea, vomiting, diarrhea, abdominal pain. He is compliant with her medications. Medication Reconciliation Allergies: Coded Allergies: No Known Allergies (Unverified , 02/13/25) Scheduled Escitalopram Oxalate (Escitalopram Oxalate), 1 TAB PO DAILY, (Reported) Potassium Chloride (Klor-Con), 1 PKT PO BID Past Medical History Past Medical History: *CARDIOVASCULAR*, Mitral Valve Stenosis Past Surgical History: noncontributory, other Drug Use: none Lives In: Home Review of Systems ROS 10 point review of systems was performed and unless noted above in HPI is negative for acute process/complaint. Physical Exam Vital Signs: Temperature: 98.4, Source: Oral, Heart Rate: 64, Respiratory Rate: 16, BP: 94/43, Pulse Oximetry: 96, Weight: 90.400 Oxygen Flow Rate: 0 Physical Exam GENERAL: Awake, alert, oriented, GCS 15, no apparent distress, non-toxic appearing, answers questions, follows commands appropriately. Examined in bed 5. HEENT: Atraumatic, normocephalic, pupils equal, extraocular muscles intact, sclerae anicteric, mucus membranes moist, oropharynx is clear, no stridor. NECK: supple, full active range of motion, trachea midline, no thyromegaly, no lymphadenopathy, no JVD. CARDIOVASCULAR: regular rate/rhythm, no murmurs/gallops/rubs, Pulses are 2+ in all extremities and symmetric. Capillary refill less than 2 seconds. PULMONARY: Nonlabored, good air movement ,no respiratory distress, speaking in full sentences, clear to auscultation bilaterally, no wheezing, no ronchi, no rales, no accessory muscle use. GASTROINTESTINAL: Soft, non-tender, non-distended, normal active bowel sounds, no organomegaly, no pulsatile masses, no CVA tenderness. NEUROLOGIC: Lucid with normal mental status. Normal facial symmetry. Moves all extremities symmetrically and with purpose. No truncal ataxia. Speech is fluid without evidence of dysarthria or aphasia, no focal deficits appreciated. MUSCULOSKELETAL: There is full range of motion of all extremities. There is no joint pain or joint swelling or joint erythema. There is no muscle pain or tenderness or swelling. EXTREMITIES: warm, well-perfused, no cyanosis, no clubbing, no edema, no acute deformities. Skin: warm, dry, no rashes or lesions, no jaundice, no petechiae orpurpura. No ecchymosis. PSYCHIATRIC: Normal affect, normal insight, normal concentration. Focused exam: [Old well-healed sternotomy scar noted.] Progress Results/Orders Results/Orders Orders - FELIX CARTAGENA DO Chest,Single View (02/13/25:) Monitor (02/13/25:29) Saline Lock (02/13/25:29) Oxygen (02/13/25:29) Saline Lock (02/13/25 15:19) Completed Orders - FELIX CARTAGENA DO Electrocardiogram (02/13/25 ) Chest,Single View (02/13/25:29) Cbc/Diff (02/13/25 13:29) BMP (02/13/25 13:29) PBNP (02/13/25:29) Hs Troponin I W Calculations (02/13/25 13:29) Hs Troponin I W Calculations (02/13/25 15:29) D-Dimer (02/13/25 15:19) Pt Inr (02/13/25 15:19) PTT (02/13/25 15:19) Normal Saline 1000ml (0.9% Sodium Chlori (02/13/25 15:20) TSH (02/13/25 15:23) Free T4 (02/13/25 15:23) Medications Received in ER Medications (Trade) Dose Ordered Sig/Traci Route PRN Reason Start Time Stop Time Status Last Admin Dose Admin (0.9% sodium chloride (NS) 1000ml IV soln) 1,000 ml ONCE ONCE IVB 02/13/25 15:20 02/13/25 15:22 DC 02/13/25 15:51 1,000 ML Vital Signs 02/13/25 02/13/25 02/13/25 02/13/25 13:23 13:35 13:45 14:00 Temp 98.4 Pulse 64 62 59 Resp 16 16 11 18 B/P (MAP) 94/43 105/47 (66) Pulse Ox 96 94 O2 Flow Rate 0 02/13/25 02/13/25 02/13/25 02/13/25 14:15 14:30 15:00 15:15 Pulse 58 52 52 58 Resp 19 18 16 15 B/P (MAP) 102/49 (66) 102/51 (68) 102/52 (69) 108/48 (68) Pulse Ox 94 93 97 97 O2 Flow Rate 0 0 0 0 02/13/25 02/13/25 16:00 17:00 Pulse 49 56 Resp 20 18 B/P (MAP) 98/50 (66) 119/63 (81) Pulse Ox 97 98 O2 Flow Rate 0 0 Laboratory Tests Test 02/13/25 13:19 02/13/25 15:27 02/13/25 15:35 White Blood Count 8.2 Red Blood Count 4.77 Hemoglobin 14.3 Hematocrit 42.7 Mean Corpuscular Volume 89.4 Mean Corpuscular Hemoglobin 30.0 Mean Corpuscular Hemoglobin Concent 33.6 Red Cell Distribution Width 14.0 Platelet Count 231 Mean Platelet Volume 10.5 H Neutrophils (%) (Auto) 66.5 Lymphocytes (%) (Auto) 20.3 L Monocytes (%) (Auto) 10.0 Eosinophils (%) (Auto) 1.9 Basophils (%) (Auto) 1.3 H Neutrophils # (Auto) 5.4 Lymphocytes # (Auto) 1.7 Monocytes # (Auto) 0.8 Eosinophils # (Auto) 0.2 Basophils # (Auto) 0.1 CBC Comment Sodium Level 140 Potassium Level 4.1 Chloride Level 103 Carbon Dioxide Level 27.5 Anion Gap 10 Blood Urea Nitrogen 20 H Creatinine 1.04 H Estimated GFR/1.73 m2 54 BUN/Creatinine Ratio 19.2 Glucose Level 107 H Calcium Level 8.2 L Troponin I High Sensitivity 4 4 Pro-B-Type Natriuretic Peptide 470 H Albumin 4.1 Chemistry Comments Prothrombin Time 35.9 H INR International Normalized Ratio 4.0 *H Activated Partial Thromboplast Time 48 H D-Dimer 0.21 D-Dimer Comment Coagulation Comments Troponin I High Sens Percent Delta 0 Troponin I Hi Sens Absolute Change 0 Thyroid Stimulating Hormone (TSH) 0.90 Free Thyroxine 0.90 EKG/XRAY/CT/US/VASC/MRI EKG : Additional Comment EKG was obtained and interpreted by myself. It shows atrial a ventricularly paced rhythm with a some prolonged NE, wide QRS, no QT prolongation, right axis, no STEMI. No ectopy. Medical Decision Making Additional information obtaine: old records, PCP Findings Facility Status: ED Holds, RME process The plan was discussed with the patient, who demonstrates clear understanding of the plan and is in agreement with the plan unless otherwise noted in the chart. All questions have been answered, all concerns were addressed unless otherwise documented. I was available throughout their ED stay for frequent reassessment and questions. Differential Diagnoses (considered and possible or likely): [PAC, PVC, atrial fibrillation, with a without rapid ventricular response, atrial flutter, less likely ventricular arrhythmia, less likely ACS, less likely CHF, less likely pneumonia] ??Differential Diagnoses (considered and unlikely, not requiring evaluation currently): [PE unlikely given the patient is already anticoagulated with the warfarin with a therapeutic INR] MDM Data Please see [facility] for the following: Independent Historians and external Records Review. Historian: [Patient] Independent Historians: ?[Primary care, record review] Medication Management: [Reviewed medication list] Social History and determinants: [Reviewed] Please see the body of the note for the following: Any independent interpretations of ECG, imaging studies. All vitals signs/haemodynamics, ordered tests were independently reviewed and interpreted by myself. Nursing triage complaint and vitals reviewed, additional nursing notes were reviewed as available and I agree unless otherwise noted or documented in contradiction in the chart Vital Signs: Independently reviewed Labs: Independently interpreted Imaging: Independently interpreted Old Medical Records: Independently reviewed, see [facility] for relevant summary and information Pulse Oximetry: [96%] interpreted as [normal on room air] by me [Internal Recruiter: [Paced rhythm with the occasional wiyot PVC.] reviewed and interpreted by me] Additionally notably showing: [Hemodynamics reviewed. The patient isn't febrile, not tachycardic, soft blood pressure, no evidence of hypoxia. Laboratory studies showed no leukocytosis, no anemia, no neutrophilic predominance. Metabolic panel notable for slight dehydration. Troponin is negative. BNP is borderline for CHF exacerbation but does not meet criteria. Chest x-ray was obtained showing no acute cardiopulmonary disease.] Tests considered but not ordered include: [Advanced imaging does not appear to be necessary at this time] Social Determinants of Health Impact: Patient was evaluated in [facility] [place] to healthcare due to below par ratio of patient to medical providers. [] Comorbid Conditions Impacting Present Evaluation and Care/Treatment: [Anticoagulated, status post artificial valve, AFib, paced] Management Discussions with other Healthcare Providers: [[employer] policy services representative regarding interrogating the pacemaker.] Treatment and Disposition Medication Management (Given or considered): [Fluid resuscitation was provided for treatment of clinically and/or laboratory apparent dehydration.]. See EMR f or details Consideration for Hospitalization/Escalation/Deescalation of Care: Admission for observation has been considered, [however the patient is able to tolerate p.o., their symptoms are controlled, they are able to rely on oral medications, and their chief complaint/diagnosis can be managed on outpatient basis.] ?ED Course:?[Date: Feb 13, 2025 Time: 15:21 pacemaker rep has been contacted. They say that they "will be there at some point. Date: Feb 13, 2025 Time: 17:30 records from the clinic were sent over. They show problem list notable for nonischemic cardiomyopathy with a CHF, history of mitral valve stenosis, paroxysmal AFib, depression with the anxiety, pulmonary nodule, prediabetes, prosthetic heart valve, according to her pacemaker testing and interrogation there has been no recent events and pacemaker is working as intended. ] ?Shared decision making:?[Patient is hemodynamically stable for discharge home with follow with their primary care provider. [ ] Specific and cautious return precautions provided and discussed with full understanding. Any incidental findings were also discussed and follow up recommendations given. [] All questions answered. Patient/family were able to verbalize back return preca utions. Patient/family agree to plan. Copies of imaging and laboratory studies were provided.] Code status:?FULL Please see the full Electronic Medical Record for full details of nursing documentation, medications list, other records of complete past medical history and conditions, vital signs, laboratory studies, and any radiologic study interpretations by radiologists. Portions of this note were completed using [employer] dictation software and as a result there may exist minor errors in spelling. I have reviewed elements of past family and social history and agree as included in note. Differential Dx:Considerations: Include: atrial dysrhythmia, atrial fibrillation, atrial flutter, MAT, PACs, PSVT, sinus tachycardia, 2nd degree AVB-type 1, 2nd degree AVB-type 2, 3rd degree AV block, PVCs; Unlikely: ventricular fibrillation, ventricular tachycardia Differential Dx:Considerations: Include electrolyte disorder, Include heart failure, Include hyperthyroidism, Include hyperventilation, Include pulmonary embolus Departure Disposition: 01 HOME / SELF CARE / HOMELESS Impression: Primary Impression: Palpitations Condition: Improved Discharge Instructions: Palpitations, [id number] Additional Instructions: Please follow-up with the offal icer poultry as soon as possible and discuss these episodes of palpitations. Referrals: NO PRIMARY CARE PROVIDER (PCP) Education Educated: Patient Educated regarding: diagnosis, treatment, prognosis, need for follow up Signature Scribe Signature: No scribe Attestation: Date: Feb 13, 2025 Time: 15:22 This note accurately reflects clinical decisions, work performed by myself, Felix Cartagena, FELIX LAU DO Feb 13, 2025 15:19
[2025-02-13] MEDS: normal saline 1000ML IV soln IVB ONE (15:51)
[2025-02-13 15:52] LABS: APTT 48 SECONDS (22-32)
[2025-02-13 15:55] LABS: INR 4.0 INR
[2025-02-13 17:58] VITALS: BP 128/78; PULSE 60; RESP 16; TEMP 98.4; O2SAT 96
== END 2025-02-13 18:00 | disposition home or self-care (01) ==
LOC: ER 13:07
DX: R00.2 Palpitations (principal); I48.91 Unspecified atrial fibrillation; Z79.01 Long term (current) use of anticoagulants; Z95.0 Presence of cardiac pacemaker; Z79.899 Other long term (current) drug therapy
CPT/HCPCS: 36415; 71045; 80048; 83880; 84439; 84443; 84484; 85025; 85379; 85610; 85730; 93005; 96360; 99285; J7030